=== PATIENT | male | born 1955 | race Caucasian/White ===

== ENCOUNTER 2023-10-12 13:25 | Outpatient (CLI) | payer MEDICARE ==
[2023-10-12 19:51] LABS: BASOPHILS # (AUTO) 0.1 10^3/uL (0.0-0.1); BASOPHILS % (AUTO) 0.9 %; EOSINOPHILS # (AUTO) 0.3 10^3/uL (0.0-0.7); EOSINOPHILS % (AUTO) 2.2 %; HCT - HEMATOCRIT 44.3 % (42.0-52.0); HGB - HEMOGLOBIN 13.6 g/dL (14.0-18.0); LYMPHOCYTES # (AUTO) 2.9 10^3/uL (1.5-3.5); LYMPHOCYTES % (AUTO) 22.8 %; MEAN CORPUSCULAR HEMOGLOBIN 26.4 pg (27.0-31.0); MEAN CORPUSCULAR HGB CONC 30.7 g/dL (32.0-36.0); MEAN CORPUSCULAR VOLUME 85.9 fL (80.0-94.0); MEAN PLATELET VOLUME 9.3 fL (7.4-11.4); MONOCYTES # (AUTO) 1.4 10^3/uL (0.0-1.0); MONOCYTES % (AUTO) 11.1 %; NEUTROPHILS # (AUTO) 7.9 10^3/uL (1.5-6.6); NEUTROPHILS % (AUTO) 62.2 %; PLT - PLATELET COUNT 363 10^3/uL (130-450); RED BLOOD COUNT 5.16 10^6/uL (4.70-6.10); WHITE BLOOD COUNT 12.7 x10^3/uL (4.8-10.8)
[2023-10-12 19:55] LABS: SLIDE REVIEW? Indicated
[2023-10-12 20:11] LABS: ALBUMIN 4.2 g/dL (3.2-5.5); ALBUMIN/GLOBULIN RATIO 1.2 (1.0-2.2); ALKALINE PHOSPHATASE 56 IU/L (42-121); ALT ALANINE AMINOTRANSFERASE 19 IU/L (10-60); AST ASPARTATE AMINOTRANSFERASE 17 IU/L (10-42); BILIRUBIN,TOTAL 0.6 mg/dL (0.2-1.0); BUN - BLOOD UREA NITROGEN 20 mg/dL (6-20); CALCIUM 9.9 mg/dL (8.5-10.3); CARBON DIOXIDE - CO2 28 mmol/L (21-32); CHLORIDE 98 mmol/L (101-111); CHOL/HDL RATIO 2.9 (<5.0); CHOLESTEROL 143 mg/dL; GFR - MDRD 74 (>89); GLUCOSE 124 mg/dL (74-104); HDL CHOLESTEROL 49 mg/dL; LDL CHOLESTEROL,CALCULATED 77 mg/dL; LDL/HDL RATIO 1.6 (<3.6); POTASSIUM 4.6 mmol/L (3.5-4.5); SODIUM 136 mmol/L (135-145); TOTAL PROTEIN 7.6 g/dL (6.4-8.9); TRIGLYCERIDES 86 mg/dL (48-352); VLDL CHOLESTEROL 17 mg/dL
[2023-10-12 20:46] LABS: THYROID STIMULATING HORMONE 5.72 uIU/mL (0.34-5.60)
[2023-10-12 21:51] LABS: PLATELET ESTIMATE, MANUAL NORMAL (130-450,000) (NORMAL); PLATELET MORPHOLOGY NORMAL APPEARANCE (NORMAL)
[2023-10-12 22:08] LABS: ESTIMATED AVERAGE GLUCOSE 137 mg/dL (70-100); HEMOGLOBIN A1c% 6.4 % (4.27-6.07)
== END 2023-10-12 13:26 | disposition home or self-care (01) ==
LOC: LAB.S 13:25
PROVIDERS: ATTEND Physician Assistant Medical
DX: I50.9 Heart failure, unspecified (principal); Z13.9 Encounter for screening, unspecified
CPT/HCPCS: 36415; 80053; 80061; 83036; 83721; 84153; 84439; 84443; 85025

== ENCOUNTER 2023-10-28 14:30 | Outpatient (CLI) | payer MEDICARE, MEDICAID ==
[2023-10-28 20:07] LABS: BASOPHILS # (AUTO) 0.1 10^3/uL (0.0-0.1); BASOPHILS % (AUTO) 0.8 %; EOSINOPHILS # (AUTO) 0.5 10^3/uL (0.0-0.7); EOSINOPHILS % (AUTO) 4.6 %; HCT - HEMATOCRIT 44.5 % (42.0-52.0); HGB - HEMOGLOBIN 13.1 g/dL (14.0-18.0); LYMPHOCYTES # (AUTO) 2.5 10^3/uL (1.5-3.5); LYMPHOCYTES % (AUTO) 22.3 %; MEAN CORPUSCULAR HEMOGLOBIN 27.1 pg (27.0-31.0); MEAN CORPUSCULAR HGB CONC 29.4 g/dL (32.0-36.0); MEAN CORPUSCULAR VOLUME 91.9 fL (80.0-94.0); MEAN PLATELET VOLUME 9.4 fL (7.4-11.4); MONOCYTES # (AUTO) 1.3 10^3/uL (0.0-1.0); NEUTROPHILS # (AUTO) 6.9 10^3/uL (1.5-6.6); NEUTROPHILS % (AUTO) 60.9 %; PLT - PLATELET COUNT 296 10^3/uL (130-450); RED BLOOD COUNT 4.84 10^6/uL (4.70-6.10); RED CELL DISTRIBUTION WIDTH 26.8 % (12.0-15.0); WHITE BLOOD COUNT 11.4 x10^3/uL (4.8-10.8)
[2023-10-28 20:38] LABS: PLATELET ESTIMATE, MANUAL NORMAL (130-450,000) (NORMAL); PLATELET MORPHOLOGY NORMAL APPEARANCE (NORMAL); SLIDE REVIEW? Indicated
[2023-10-28 20:39] LABS: RBC MORPHOLOGY (MULTIPLE) 3+ ANISOCYTOSIS (NORMAL)
== END 2023-10-28 14:31 | disposition home or self-care (01) ==
LOC: LAB.S 14:30
PROVIDERS: ATTEND Physician Assistant Medical
DX: D72.829 Elevated white blood cell count, unspecified (principal)
CPT/HCPCS: 36415; 85025

== ENCOUNTER 2023-12-07 13:44 | Outpatient (CLI) | payer MEDICARE, MEDICAID ==
[2023-12-07 20:15] LABS: EOSINOPHILS % (AUTO) 2.8 %; HCT - HEMATOCRIT 38.5 % (42.0-52.0); HGB - HEMOGLOBIN 11.3 g/dL (14.0-18.0); LYMPHOCYTES % (AUTO) 24.2 %; MEAN CORPUSCULAR HEMOGLOBIN 27.4 pg (27.0-31.0); MEAN CORPUSCULAR HGB CONC 29.4 g/dL (32.0-36.0); MEAN CORPUSCULAR VOLUME 93.4 fL (80.0-94.0); MEAN PLATELET VOLUME 9.4 fL (7.4-11.4); MONOCYTES % (AUTO) 14.5 %; PLT - PLATELET COUNT 339 10^3/uL (130-450); RED BLOOD COUNT 4.12 10^6/uL (4.70-6.10); RED CELL DISTRIBUTION WIDTH 19.6 % (12.0-15.0); WHITE BLOOD COUNT 11.3 x10^3/uL (4.8-10.8)
[2023-12-07 20:18] LABS: ABNORMAL LYMPHS % (MANUAL) 0 %; BAND NEUTROPHILS % (MANUAL) 0 %
[2023-12-07 20:28] LABS: ALBUMIN 4.1 g/dL (3.2-5.5); ALBUMIN/GLOBULIN RATIO 1.3 (1.0-2.2); BILIRUBIN,TOTAL 0.4 mg/dL (0.2-1.0); CALCIUM 9.9 mg/dL (8.5-10.3); CREATININE 0.9 mg/dL (0.6-1.3); POTASSIUM 4.3 mmol/L (3.5-4.5); TOTAL PROTEIN 7.3 g/dL (6.4-8.9)
[2023-12-07 20:58] LABS: BASOPHILS # (MANUAL) 0.1 10^3/uL (0-0.1); BASOPHILS % (MANUAL) 1 %; DIFFERENTIAL COMMENT MANUAL DIFFERENTIAL; EOSINOPHILS # (MANUAL) 0.1 10^3/uL (0-0.7); LYMPHOCYTES # (MANUAL) 3.2 10^3/uL (1.5-3.5); LYMPHOCYTES % (MANUAL) 25 %; MONOCYTES # (MANUAL) 1.4 10^3/uL (0.0-1.0); NEUTROPHILS # (MANUAL) 6.6 10^3/uL (1.5-6.6); PLATELET ESTIMATE, MANUAL NORMAL (130-450,000) (NORMAL); PLATELET MORPHOLOGY NORMAL APPEARANCE (NORMAL); REACTIVE LYMPHS % (MANUAL) 3 %
[2023-12-07 22:16] LABS: ESTIMATED AVERAGE GLUCOSE 146 mg/dL (70-100); HEMOGLOBIN A1c% 6.7 % (4.27-6.07)
== END 2023-12-07 13:45 | disposition home or self-care (01) ==
LOC: LAB.S 13:44
PROVIDERS: ATTEND Physician Assistant Medical
DX: I50.9 Heart failure, unspecified (principal); R73.09 Other abnormal glucose; R97.20 Elevated prostate specific antigen [PSA]; D72.829 Elevated white blood cell count, unspecified
CPT/HCPCS: 36415; 80053; 83036; 84153; 85025

== ENCOUNTER 2024-01-27 10:39 | Outpatient (CLI) | payer MEDICARE, MEDICAID ==
[2024-01-27 15:13] LABS: ABSOLUTE RETICS # AUTO 0.127 10^6/uL (0.020-0.110); BASOPHILS % (AUTO) 1.1 %; EOSINOPHILS % (AUTO) 3.5 %; HCT - HEMATOCRIT 35.7 % (42.0-52.0); HGB - HEMOGLOBIN 9.8 g/dL (14.0-18.0); LYMPHOCYTES % (AUTO) 26.7 %; MEAN CORPUSCULAR HEMOGLOBIN 23.7 pg (27.0-31.0); MEAN CORPUSCULAR HGB CONC 27.5 g/dL (32.0-36.0); MEAN CORPUSCULAR VOLUME 86.2 fL (80.0-94.0); MEAN PLATELET VOLUME 10.2 fL (7.4-11.4); MONOCYTES % (AUTO) 14.3 %; NEUTROPHILS % (AUTO) 53.9 %; PLT - PLATELET COUNT 322 10^3/uL (130-450); RED BLOOD COUNT 4.14 10^6/uL (4.70-6.10); RED CELL DISTRIBUTION WIDTH 21.5 % (12.0-15.0); RETICULOCYTE COUNT % (AUTO) 3.06 % (0.5-2.3); WHITE BLOOD COUNT 11.8 x10^3/uL (4.8-10.8)
[2024-01-27 15:24] LABS: ABNORMAL LYMPHS % (MANUAL) 0 %
[2024-01-27 15:45] LABS: ALBUMIN 4.1 g/dL (3.2-5.5); ALBUMIN/GLOBULIN RATIO 1.3 (1.0-2.2); BILIRUBIN,TOTAL 0.4 mg/dL (0.2-1.0); CALCIUM 9.6 mg/dL (8.5-10.3); CREATININE 0.9 mg/dL (0.6-1.3); POTASSIUM 4.4 mmol/L (3.5-4.5); TOTAL PROTEIN 7.3 g/dL (6.4-8.9)
[2024-01-27 16:06] LABS: BAND NEUTROPHILS % (MANUAL) 1 %; BASOPHILS # (MANUAL) 0.1 10^3/uL (0-0.1); BASOPHILS % (MANUAL) 1 %; DIFFERENTIAL COMMENT MANUAL DIFFERENTIAL; EOSINOPHILS # (MANUAL) 0.4 10^3/uL (0-0.7); LYMPHOCYTES # (MANUAL) 1.7 10^3/uL (1.5-3.5); LYMPHOCYTES % (MANUAL) 14 %; MONOCYTES # (MANUAL) 2.1 10^3/uL (0.0-1.0); MYELOCYTES % (MANUAL) 1 %; NEUTROPHILS # (MANUAL) 7.4 10^3/uL (1.5-6.6); PLATELET ESTIMATE, MANUAL NORMAL (130-450,000) (NORMAL); PLATELET MORPHOLOGY NORMAL APPEARANCE (NORMAL)
[2024-01-27 16:08] LABS: FERRITIN 7.7 ng/mL (23.9-336.2)
== END 2024-01-27 10:40 | disposition home or self-care (01) ==
LOC: LAB.S 10:39
PROVIDERS: ATTEND Physician Assistant Medical
DX: D72.829 Elevated white blood cell count, unspecified (principal); R73.09 Other abnormal glucose; R97.20 Elevated prostate specific antigen [PSA]; D64.9 Anemia, unspecified
CPT/HCPCS: 36415; 80053; 82607; 82728; 82746; 83540; 84153; 84466; 85025; 85045

== ENCOUNTER 2024-05-13 06:08 | Outpatient (CLI) | payer MEDICARE, MEDICAID | END 2024-05-13 23:59 | disposition E | LOC: EMS 06:08 | DX: I46.9 Cardiac arrest, cause unspecified (principal) | CPT/HCPCS: A0425; A0428 ==